=== PATIENT | female | born 1950 | race Caucasian/White ===

== ENCOUNTER → 2017-01-21 | Outpatient (CLI) | payer MEDICARE, OTHER ==
[~2017-01-21] MED LIST: ASP81TEC PO; CALC-80 PO; HCT25T PO; KCL10CCR PO; LOSA100T7 PO; METO50TA7 PO; MULT-608 PO; OLME40TA14; OMACOR; OMEG1CAP PO; OXYC-12 PO; [UNRECOGNIZED DRUG - CODE] PO
--- NOTE | 2017-01-21 13:30 | Diagnostic Imaging Report ---
PROCEDURE: CT chest and abdomen without contrast. TECHNIQUE: Axial images were obtained from the thoracic inlet through the iliac crest without the administration of intravenous contrast. INDICATION: Six-month followup for neuroendocrine tumor, previous hernia repair, gallbladder surgery, and partial left lung resection. COMPARISON STUDY: CT scan of the chest and abdomen from May 02, 2016. FINDINGS: In the lungs are several small pulmonary nodules on the right side measuring up to 4 mm. On axial image #24, there is a new nodule posteriorly in the right lower lobe measuring 4 mm. Partial resection of the left lung is again identified. No nodules are present. There are no pleural effusions or abnormal adenopathy. Heart size is normal. Mild arteriosclerosis is present. The axillae are clear. Bone windows demonstrate no evidence of osseous metastasis. Abdomen: Fatty infiltration of the liver has improved. No focal abnormalities are present. The gallbladder is absent. There is no ductal dilatation. The liver, pancreas, adrenal glands, and kidneys appear normal. No ascites, free air, or abnormal adenopathy is present. There is a right paracentral abdominal wall hernia above the umbilicus with fat only within this. This has slightly increased from the previous exam. Surgical clips are present within the midabdomen. The pelvis was not imaged. Degenerative changes are present in the spine. No osseous metastases are present. IMPRESSION: 1. There are several small 4 mm pulmonary nodules. There is a new nodule measuring approximately 4 mm posteriorly in the right lower lobe. 2. Postoperative changes are present in the lung. 3. The abdomen demonstrates improving fatty infiltration of the liver with no acute findings. Abdominal wall hernia has slightly increased in size. 4. The pelvis was not imaged. Dictated by: Dictated on workstation # [id number]
== END ==
LOC: RAD 12:23
PROVIDERS: ATTEND Internal Medicine Hematology & Oncology
DX: C7A.8 Other malignant neuroendocrine tumors (principal)
CPT/HCPCS: 71250; 74150

== ENCOUNTER 2017-01-28 09:01 | Outpatient (RCR) | payer MEDICARE, OTHER ==
[2017-01-21 12:22] LABS: BASOPHILS % (AUTO) 0 % (0-10); EOSINOPHILS # (AUTO) 0.1 10^3/uL (0.0-0.3); EOSINOPHILS % (AUTO) 2 % (0-10); LYMPHOCYTES # (AUTO) 1.7 X 10^3 (1.0-4.0); LYMPHOCYTES % (AUTO) 28 % (12-44); MEAN CORPUSCULAR HEMOGLOBIN 29 PG (25-34); MEAN CORPUSCULAR HGB CONC 33 G/DL (32-36); MEAN CORPUSCULAR VOLUME 90 FL (80-99); MEAN PLATELET VOLUME 9.9 FL (7.4-10.4); MONOCYTES # (AUTO) 0.5 X 10^3 (0.0-1.0); MONOCYTES % (AUTO) 9 % (0-12); NEUTROPHILS # (AUTO) 3.6 X 10^3 (1.8-7.8); NEUTROPHILS % (AUTO) 61 % (42-75); PLATELET COUNT 181 10^3/uL (130-400); RED CELL DISTRIBUTION WIDTH 13.5 % (10.0-14.5); WHITE BLOOD COUNT 5.9 10^3/uL (4.3-11.0)
[2017-01-21 12:42] LABS: ALBUMIN 4.1 G/DL (3.2-4.5); BILIRUBIN,TOTAL 0.6 MG/DL (0.1-1.0); CALCIUM 10.1 MG/DL (8.5-10.1); CREATININE SERUM 1.35 MG/DL (0.60-1.30); POTASSIUM 4.2 MMOL/L (3.6-5.0); TOTAL PROTEIN 7.2 G/DL (6.4-8.2)
== END 2017-04-21 | disposition home or self-care (01) ==
LOC: ONC 09:01
PROVIDERS: ATTEND Internal Medicine Hematology & Oncology
DX: C7A.1 Malignant poorly differentiated neuroendocrine tumors (principal); Z85.43 Personal history of malignant neoplasm of ovary; I10 Essential (primary) hypertension; N28.9 Disorder of kidney and ureter, unspecified; K76.0 Fatty (change of) liver, not elsewhere classified; G43.909 Migraine, unspecified, not intractable, without status migrainosus; E66.9 Obesity, unspecified; Z68.36 Body mass index [BMI] 36.0-36.9, adult; Z92.21 Personal history of antineoplastic chemotherapy; Z79.899 Other long term (current) drug therapy; Z90.710 Acquired absence of both cervix and uterus
CPT/HCPCS: 36415; 80053; 85025; 86304; 99213

== ENCOUNTER 2017-10-16 09:36 | Outpatient (RCR) | payer MEDICARE, OTHER ==
[2017-10-16 09:47] LABS: BASOPHILS % (AUTO) 0 % (0-10); EOSINOPHILS # (AUTO) 0.2 10^3/uL (0.0-0.3); EOSINOPHILS % (AUTO) 3 % (0-10); HEMATOCRIT 41 % (35-52); HEMOGLOBIN 13.5 G/DL (11.5-16.0); LYMPHOCYTES # (AUTO) 1.8 X 10^3 (1.0-4.0); LYMPHOCYTES % (AUTO) 30 % (12-44); MEAN CORPUSCULAR HEMOGLOBIN 30 PG (25-34); MEAN CORPUSCULAR HGB CONC 33 G/DL (32-36); MEAN CORPUSCULAR VOLUME 90 FL (80-99); MEAN PLATELET VOLUME 9.9 FL (7.4-10.4); MONOCYTES # (AUTO) 0.6 X 10^3 (0.0-1.0); MONOCYTES % (AUTO) 10 % (0-12); NEUTROPHILS # (AUTO) 3.5 X 10^3 (1.8-7.8); NEUTROPHILS % (AUTO) 57 % (42-75); PLATELET COUNT 186 10^3/uL (130-400); RED BLOOD COUNT 4.52 10^6/uL (4.35-5.85); RED CELL DISTRIBUTION WIDTH 13.1 % (10.0-14.5); WHITE BLOOD COUNT 6.2 10^3/uL (4.3-11.0)
[2017-10-16 10:06] LABS: ALBUMIN 4.1 GM/DL (3.2-4.5); BILIRUBIN,TOTAL 0.8 MG/DL (0.1-1.0); CALCIUM 10.1 MG/DL (8.5-10.1); CREATININE SERUM 1.34 MG/DL (0.60-1.30); POTASSIUM 3.9 MMOL/L (3.6-5.0); TOTAL PROTEIN 7.3 GM/DL (6.4-8.2)
== END 2018-01-14 | disposition home or self-care (01) ==
LOC: ONC 09:36
PROVIDERS: ATTEND Internal Medicine Hematology & Oncology
DX: C7A.1 Malignant poorly differentiated neuroendocrine tumors (principal); Z85.43 Personal history of malignant neoplasm of ovary; I10 Essential (primary) hypertension; N28.9 Disorder of kidney and ureter, unspecified; K76.0 Fatty (change of) liver, not elsewhere classified; G43.909 Migraine, unspecified, not intractable, without status migrainosus; E66.9 Obesity, unspecified; Z68.36 Body mass index [BMI] 36.0-36.9, adult; Z92.21 Personal history of antineoplastic chemotherapy; Z79.899 Other long term (current) drug therapy; Z90.710 Acquired absence of both cervix and uterus
CPT/HCPCS: 36415; 80053; 85025; 86304

== ENCOUNTER → 2018-02-12 | Outpatient (CLI) | payer MEDICARE, OTHER ==
[~2018-02-12] MED LIST changes: +BARIUM SUSPENSION 2.1% (VANILLA SILQ) 450 ML PO ONE; +CATHETER FLUSH 10 ML SYR IV PRN; +IOHEXOL 350 MG/ML 100 ML (OMNIPAQUE 350) VIAL IV ONE; +NS 250 ML (IVPB) BAG IV ONE
--- NOTE | 2018-02-12 12:14 | Diagnostic Imaging Report ---
PROCEDURE: CT chest, abdomen, and pelvis with contrast. TECHNIQUE: Multiple contiguous axial images were obtained through the chest, abdomen, and pelvis after the administration of intravenous contrast. INDICATION: Lung and ovarian cancer. COMPARISON: Study compared to 01/21/2017. FINDINGS: Chest: Few scattered pulmonary micronodules bilaterally showed no change from prior with no new, dominant, or particularly suspect lung mass. Postsurgical changes of a partial left lung resection are stable with no hilar, mediastinal, or axillary lymphadenopathy. No acute or suspect soft tissue or osseous chest wall disease. No thoracic effusion. Abdomen and pelvis: The liver is stable and negative. The spleen, adrenals, and pancreas are nonacute with unchanged slight thickening of the right adrenal isthmus stable. Pancreas is normal. There is no abdominopelvic mesenteric or retroperitoneal lymphadenopathy. Postsurgical changes to the anterior abdominal wall, stable. There is an infraumbilical small hernia comprised of fat and a segment of unobstructed small bowel. Noninflamed sigmoid diverticulosis present. The pelvic sidewalls are normal. There is no ilioinguinal chain lymphadenopathy. No suspect lytic or sclerotic bone lesion. IMPRESSION: 1. Chest: Continued stable scattered pulmonary micronodules, largely 3 to 4 mm or less. Their stability and size favor benignity. No new or dominant lung mass and no thoracic adenopathy with stable postsurgical sequelae. 2. Abdomen and pelvis: Infraumbilical nonobstructing hernia and noninflamed diverticulosis. No mass or adenopathy. No acute finding or evidence for metastasis. Dictated by: Dictated on workstation # [id number]
== END ==
LOC: RAD 09:28
PROVIDERS: ATTEND Internal Medicine Hematology & Oncology
DX: C7A.8 Other malignant neuroendocrine tumors (principal); C56.9 Malignant neoplasm of unspecified ovary; K42.9 Umbilical hernia without obstruction or gangrene; K57.30 Diverticulosis of large intestine without perforation or abscess without bleeding
CPT/HCPCS: 71260; 74177

== ENCOUNTER 2019-02-18 09:40 | Outpatient (RCR) | payer MEDICARE, OTHER ==
[2019-02-11 10:18] LABS: BASOPHILS % (AUTO) 0 % (0-10); EOSINOPHILS # (AUTO) 0.2 10^3/uL (0.0-0.3); EOSINOPHILS % (AUTO) 3 % (0-10); HEMATOCRIT 40 % (35-52); HEMOGLOBIN 13.2 G/DL (11.5-16.0); LYMPHOCYTES # (AUTO) 1.5 X 10^3 (1.0-4.0); LYMPHOCYTES % (AUTO) 26 % (12-44); MEAN CORPUSCULAR HEMOGLOBIN 30 PG (25-34); MEAN CORPUSCULAR HGB CONC 33 G/DL (32-36); MEAN CORPUSCULAR VOLUME 91 FL (80-99); MEAN PLATELET VOLUME 10.2 FL (7.4-10.4); MONOCYTES # (AUTO) 0.5 X 10^3 (0.0-1.0); MONOCYTES % (AUTO) 9 % (0-12); NEUTROPHILS # (AUTO) 3.7 X 10^3 (1.8-7.8); NEUTROPHILS % (AUTO) 62 % (42-75); PLATELET COUNT 169 10^3/uL (130-400); RED CELL DISTRIBUTION WIDTH 13.1 % (10.0-14.5)
[2019-02-11 10:40] LABS: ALBUMIN 4.2 GM/DL (3.2-4.5); BILIRUBIN,TOTAL 0.7 MG/DL (0.1-1.0); CALCIUM 10.4 MG/DL (8.5-10.1); CREATININE SERUM 1.41 MG/DL (0.60-1.30); POTASSIUM 4.1 MMOL/L (3.6-5.0); TOTAL PROTEIN 7.1 GM/DL (6.4-8.2)
[~2019-02-18 09:40] MED LIST changes: -BARIUM SUSPENSION 2.1% (VANILLA SILQ) 450 ML PO ONE; -CATHETER FLUSH 10 ML SYR IV PRN; -IOHEXOL 350 MG/ML 100 ML (OMNIPAQUE 350) VIAL IV ONE; -NS 250 ML (IVPB) BAG IV ONE
== END 2019-05-12 | disposition home or self-care (01) ==
LOC: ONC 09:40
PROVIDERS: ATTEND Internal Medicine Hematology & Oncology
DX: C7A.1 Malignant poorly differentiated neuroendocrine tumors (principal); Z85.43 Personal history of malignant neoplasm of ovary; I10 Essential (primary) hypertension; N28.9 Disorder of kidney and ureter, unspecified; K76.0 Fatty (change of) liver, not elsewhere classified; G43.909 Migraine, unspecified, not intractable, without status migrainosus; E66.9 Obesity, unspecified; Z68.36 Body mass index [BMI] 36.0-36.9, adult; Z92.21 Personal history of antineoplastic chemotherapy; Z79.899 Other long term (current) drug therapy; Z90.710 Acquired absence of both cervix and uterus
CPT/HCPCS: 36415; 80053; 85025; 86304; 99213

== ENCOUNTER → 2019-08-10 | Outpatient (CLI) | payer MEDICARE, OTHER ==
--- NOTE | 2019-08-10 10:54 | Diagnostic Imaging Report ---
EXAMINATION: PA and lateral chest at 1017h. INDICATION: Poorly differentiated neuroendocrine tumor The heart size is within normal limits and stable when compared to 08/02/2013. The previous exam did suggest a 13 mm nodule in the left lung base. That finding is not identified on this exam. That nodule was not evident on the CT chest, abdomen or pelvis exam of 02/12/[address] exam did note a few small (3 - 4 mm) micronodules in both lungs. Those nodules are not well appreciated on this study. The lungs are generally clear. There is no evidence for failure, pneumonia or for a pleural effusion. The mediastinum is not widened. The osseous structures are intact. IMPRESSION: 1. There is no evidence for an acute cardiopulmonary abnormality. 2. The small micronodules in both lungs seen on the previous CT chest exam are not well appreciated on this study. Dictated by: Dictated on workstation # [id number]
== END ==
LOC: RAD 09:48
PROVIDERS: ATTEND Internal Medicine Hematology & Oncology
DX: C7A.1 Malignant poorly differentiated neuroendocrine tumors (principal); R91.8 Other nonspecific abnormal finding of lung field
CPT/HCPCS: 71046

== ENCOUNTER 2019-08-19 09:39 | Outpatient (RCR) | payer MEDICARE, OTHER ==
[2019-08-10 09:33] LABS: BASOPHILS % (AUTO) 0 % (0-10); EOSINOPHILS # (AUTO) 0.2 10^3/uL (0.0-0.3); EOSINOPHILS % (AUTO) 3 % (0-10); HEMATOCRIT 41 % (35-52); LYMPHOCYTES # (AUTO) 1.6 X 10^3 (1.0-4.0); LYMPHOCYTES % (AUTO) 28 % (12-44); MEAN CORPUSCULAR HEMOGLOBIN 29 PG (25-34); MEAN CORPUSCULAR HGB CONC 32 G/DL (32-36); MEAN CORPUSCULAR VOLUME 91 FL (80-99); MEAN PLATELET VOLUME 10.3 FL (7.4-10.4); MONOCYTES # (AUTO) 0.6 X 10^3 (0.0-1.0); MONOCYTES % (AUTO) 10 % (0-12); NEUTROPHILS # (AUTO) 3.4 X 10^3 (1.8-7.8); NEUTROPHILS % (AUTO) 59 % (42-75); PLATELET COUNT 174 10^3/uL (130-400); RED CELL DISTRIBUTION WIDTH 13.3 % (10.0-14.5); WHITE BLOOD COUNT 5.8 10^3/uL (4.3-11.0)
[2019-08-10 09:58] LABS: ALBUMIN 4.2 GM/DL (3.2-4.5); BILIRUBIN,TOTAL 0.7 MG/DL (0.1-1.0); CALCIUM 10.3 MG/DL (8.5-10.1); CREATININE SERUM 1.67 MG/DL (0.60-1.30); POTASSIUM 3.6 MMOL/L (3.6-5.0)
== END 2019-11-08 | disposition home or self-care (01) ==
LOC: ONC 09:39
PROVIDERS: ATTEND Internal Medicine Hematology & Oncology
DX: C7A.1 Malignant poorly differentiated neuroendocrine tumors (principal); C56.2 Malignant neoplasm of left ovary; K76.0 Fatty (change of) liver, not elsewhere classified
CPT/HCPCS: 36415; 80053; 85025; 99213

== ENCOUNTER 2020-02-17 09:13 | Outpatient (RCR) | payer MEDICARE, OTHER ==
[2020-02-10 10:16] LABS: BASOPHILS % (AUTO) 0 % (0-10); EOSINOPHILS # (AUTO) 0.2 10^3/uL (0.0-0.3); EOSINOPHILS % (AUTO) 3 % (0-10); HEMATOCRIT 40 % (35-52); HEMOGLOBIN 12.9 G/DL (11.5-16.0); LYMPHOCYTES # (AUTO) 1.5 X 10^3 (1.0-4.0); LYMPHOCYTES % (AUTO) 26 % (12-44); MEAN CORPUSCULAR HEMOGLOBIN 30 PG (25-34); MEAN CORPUSCULAR HGB CONC 32 G/DL (32-36); MEAN CORPUSCULAR VOLUME 92 FL (80-99); MEAN PLATELET VOLUME 10.1 FL (7.4-10.4); MONOCYTES # (AUTO) 0.6 X 10^3 (0.0-1.0); MONOCYTES % (AUTO) 10 % (0-12); NEUTROPHILS # (AUTO) 3.4 X 10^3 (1.8-7.8); NEUTROPHILS % (AUTO) 61 % (42-75); PLATELET COUNT 171 10^3/uL (130-400); RED CELL DISTRIBUTION WIDTH 13.2 % (10.0-14.5); WHITE BLOOD COUNT 5.6 10^3/uL (4.3-11.0)
[2020-02-10 10:34] LABS: BILIRUBIN,TOTAL 0.4 MG/DL (0.1-1.0); CREATININE SERUM 1.31 MG/DL (0.60-1.30); TOTAL PROTEIN 7.2 GM/DL (6.4-8.2)
== END 2020-05-10 | disposition home or self-care (01) ==
LOC: ONC 09:13
PROVIDERS: ATTEND Internal Medicine Hematology & Oncology
DX: C7A.1 Malignant poorly differentiated neuroendocrine tumors (principal); C56.2 Malignant neoplasm of left ovary; K76.0 Fatty (change of) liver, not elsewhere classified
CPT/HCPCS: 80053; 85025; 99213

== ENCOUNTER → 2021-02-08 | Outpatient (CLI) | payer MEDICARE, OTHER ==
--- NOTE | 2021-02-08 10:48 | Diagnostic Imaging Report ---
Indication: Neuroendocrine tumor. Time of exam: 10:29 AM Correlation is made with prior chest from 08/10/2019. The heart size is normal. The pulmonary vascularity is unremarkable. The lungs are clear. No infiltrate, effusion or pneumothorax is detected. Impression: No acute cardiopulmonary process is detected. Dictated by: Dictated on workstation # [id number]
== END ==
LOC: RAD 10:07
PROVIDERS: ATTEND Internal Medicine Hematology & Oncology
DX: C7A.1 Malignant poorly differentiated neuroendocrine tumors (principal)
CPT/HCPCS: 71046

== ENCOUNTER 2021-02-15 12:37 | Outpatient (RCR) | payer MEDICARE, OTHER ==
[2021-02-08 10:08] LABS: BASOPHILS % (AUTO) 0 % (0-10); EOSINOPHILS # (AUTO) 0.1 10^3/uL (0.0-0.3); EOSINOPHILS % (AUTO) 3 % (0-10); HEMATOCRIT 41 % (35-52); HEMOGLOBIN 13.4 g/dL (11.5-16.0); LYMPHOCYTES # (AUTO) 1.2 10^3/uL (1.0-4.0); LYMPHOCYTES % (AUTO) 24 % (12-44); MEAN CORPUSCULAR HEMOGLOBIN 30 pg (25-34); MEAN CORPUSCULAR HGB CONC 33 g/dL (32-36); MEAN CORPUSCULAR VOLUME 92 fL (80-99); MONOCYTES # (AUTO) 0.4 10^3/uL (0.0-1.0); MONOCYTES % (AUTO) 8 % (0-12); NEUTROPHILS # (AUTO) 3.3 10^3/uL (1.8-7.8); NEUTROPHILS % (AUTO) 65 % (42-75); PLATELET COUNT 169 10^3/uL (130-400); WHITE BLOOD COUNT 5.2 10^3/uL (4.3-11.0)
[2021-02-08 10:32] LABS: BILIRUBIN,TOTAL 0.6 MG/DL (0.1-1.0); CALCIUM 10.3 MG/DL (8.5-10.1); CREATININE SERUM 1.42 MG/DL (0.60-1.30); POTASSIUM 4.1 MMOL/L (3.6-5.0); TOTAL PROTEIN 7.1 GM/DL (6.4-8.2)
== END 2021-05-09 | disposition home or self-care (01) ==
LOC: ONC 12:37
PROVIDERS: ATTEND Internal Medicine Hematology & Oncology
DX: C56.2 Malignant neoplasm of left ovary (principal); C7A.090 Malignant carcinoid tumor of the bronchus and lung; N28.9 Disorder of kidney and ureter, unspecified; I10 Essential (primary) hypertension; R94.5 Abnormal results of liver function studies; Z90.710 Acquired absence of both cervix and uterus; Z90.722 Acquired absence of ovaries, bilateral; Z92.21 Personal history of antineoplastic chemotherapy; Z90.2 Acquired absence of lung [part of]; Z79.899 Other long term (current) drug therapy
CPT/HCPCS: 80053; 85025; 99213

== ENCOUNTER → 2023-04-14 | Outpatient (CLI) | payer MEDICARE, OTHER ==
--- NOTE | 2023-04-14 14:56 | Diagnostic Imaging Report ---
Exam: Nuclear medicine parathyroid imaging with SPECT-CT. Date: April 14, 2023. Indication: 72-year-old female, hyperparathyroidism. Comparison: CT chest, abdomen and pelvis February 12, 2018. Findings: 20.8 mCi of technetium labeled Sestamibi was administered. 20 minute and 2-hour scintigraphic images were obtained at the level of the neck and chest. SPECT-CT images were also obtained and provided. There is salivary gland, thyroid, and myocardial uptake which is a normal distribution. There is expected fading of thyroid activity on delayed imaging. There is no persistent nodular area of radiotracer activity at the level of the neck or chest to suggest a parathyroid adenoma. Impression: 1. No evidence of a parathyroid adenoma at the level of the neck or chest. Dictated by: Dictated on workstation # [id number]
== END ==
LOC: CARD 11:25
PROVIDERS: ATTEND Allergy & Immunology
DX: E21.3 Hyperparathyroidism, unspecified (principal); R79.89 Other specified abnormal findings of blood chemistry
CPT/HCPCS: 78072; A9500